=== PATIENT | female | born 1965 | race Caucasian/White ===

== ENCOUNTER 2016-04-06 07:35 | Day surgery (SDC) | payer OTHER ==
[~2016-04-06] VITALS: Ht 165.1 cm; Wt 61.2 kg
[~2016-04-06 07:35] MED LIST: BUPR300T51 PO; GABA-500 PO; PRAV10TA2 PO
[2016-04-06] MEDS ORDERED: 0.9% Sodium Chloride 1,000 ML ONE (07:49)
[2016-04-06 07:50] VITALS: BP 110/69; PULSE 78; RESP 16; O2SAT 98
[2016-04-06] MEDS ORDERED: 0.9% Sodium Chloride 1,000 ML IV PRN ×2 (07:54→08:45)
[2016-04-06] MEDS ORDERED: fentaNYL-PF 50 mCg/mL 2 mL Inj IVPUSH PRN ×2 (07:55→08:45)
[2016-04-06 08:44] VITALS: BP 109/67; PULSE 75; RESP 16; O2SAT 96
[2016-04-06] MEDS ORDERED: Sodium Chloride LOK Flush 10 mL Syringe IV PRN (08:45)
[2016-04-06 08:54] VITALS: BP 106/66; PULSE 71; O2SAT 98
[2016-04-06 09:04] VITALS: BP 108/68; PULSE 74; RESP 15; O2SAT 99
--- NOTE | 2016-04-06 09:21 | ENDO ---
[address] [address] ENDOSCOPY PROCEDURE PATIENT: LEELA MARC : 1965 MR#: [id number] ADMIT: 04/06/2016 JOB ID: [id number] DATE OF SERVICE: 04/06/2016 PROCEDURE PERFORMED: Colonoscopy. INDICATIONS: Screening. ASA CLASSIFICATION: The patient's ASA classification is I. MALLAMPATI SCORE: Mallampati score was 2. MEDICATIONS: 1. Versed 4 mg. 2. Fentanyl 75 mcg. INSTRUMENT USED: PCF-H190L. PREPARATION QUALITY: Good. PROCEDURE DETAILS: After informed consent was obtained, the patient was brought into the GI suite, where she was placed on oxygen via nasal cannula and monitored with continuous pulse oximeter, telemetry, and blood pressure monitoring. A time-out was performed. Then, she was placed in the left lateral decubitus position and medications were administered for sedation. Digital rectal exam was performed which was unremarkable. The colonoscope was then inserted into the rectum and advanced under direct visualization to the cecum, which was identified by the presence of the ileocecal valve and appendiceal orifice. Once the cecum was reached, the colonoscope was withdrawn back into the rectum, as the mucosa and lumen were examined. In the rectum, retroflexion was performed. Following retroflexion, remaining air in the rectum was suctioned, and procedure was completed. FINDINGS: 1. Small internal hemorrhoids. 2. Otherwise normal exam from rectum to cecum. IMPRESSION: Internal hemorrhoids. RECOMMENDATIONS: 1. Repeat colonoscopy in 10 years, sooner if symptoms dictate. 2. Fiber-rich diet. COMPLICATIONS: None. ESTIMATED BLOOD LOSS: Zero.
== END 2016-04-06 23:59 | disposition home or self-care (01) ==
LOC: END 07:35
PROVIDERS: ATTEND Internal Medicine Gastroenterology
DX: Z12.11 Encounter for screening for malignant neoplasm of colon (principal); Z83.71 Family history of colonic polyps; K64.8 Other hemorrhoids; E78.00 Pure hypercholesterolemia, unspecified; Z87.891 Personal history of nicotine dependence
CPT/HCPCS: G0105; G0500; J2250; J3010; J7030